=== PATIENT | female | born 2005 | race Caucasian/White ===

== ENCOUNTER 2025-04-17 10:51 | Outpatient (CLI) | payer BC | END 2025-04-17 10:52 | disposition home or self-care (01) | LOC: CSHCT 10:51 | PROVIDERS: ATTEND Family Medicine | DX: R51.9 Headache, unspecified (principal); M25.50 Pain in unspecified joint; R21 Rash and other nonspecific skin eruption; J02.9 Acute pharyngitis, unspecified | CPT/HCPCS: 70450 ==